=== PATIENT | male | born 1950 | race Caucasian/White ===

== ENCOUNTER 2023-11-28 16:25 | Inpatient (IN) ==
--- NOTE | 2023-11-28 16:48 | Emergency Department Note ---
Impression & Plan Pancreatic cancer, Enteritis, Fever, Hypomagnesemia, Hyponatremia, Hypophosphatemia ED Provider Note NAME: SAMIR CAMEJO AGE: 72 SEX: M : 1950 ARRIVES VIA: Walk-In INFORMANT: Patient ED PROVIDER(S): Jc Luis MD CHIEF COMPLAINT: Fever, abdominal pain, loose stool. PLAN: Disposition: Admit MEDICAL DECISION MAKING: The patient is a pleasant 72-year-old gentleman with a past medical history of pancreatic cancer status post Whipple procedure, currently undergoing chemotherapy with last treatment approximately 10 days ago who presents to the emergency department via walk-in, accompanied by family for fever of 100.4 at home in setting of having intermittent abdominal discomfort and gas pain and frequent loose stool over the past cough. She is afebrile here for 5 days. They deny any cough, congestion. No he reports feeling nauseated but denies vomiting. On evaluation the patient is fatigued appearing but no acute distress, afebrile with heart rate in the 120s and vital signs otherwise stable. WBC within normal limits with no neutrophilia though mild left shift. Platelets within normal limits. H/H similar to prior. Chemistry without metabolic acidosis. Magnesium 1.6 with repletion provided. LFTs unremarkable. HS troponin 11.1, within normal limits. Lipase normal. Procalcitonin is not elevated. UA with 1+ ketones consistent with patient's clinical dry appearance. Otherwise no evidence of infection. Respiratory BioFire was negative. Stool studies ordered however sample yet to be obtained. Patient did have a watery stool but was not able to be collected. CT of the ab pelvis was performed and demonstrates evidence of enteritis. Additional postoperative changes from the patient's Whipple is described. Upon re-evaluation patient did report feeling improved following IV fluid hydration with 2 L normal saline, IV APAP, famotidine, Phenergan, Zofran as well as Bentyl. Empiric antibiotic treatment with cefepime was given while awaiting results due to being on chemotherapy with fever. Findings reviewed with the patient and family and given the patient's poor oral intake in the setting of enteritis he expresses concerns for being dehydrated. Additionally, given the patient's fevers also agrees to proceed with admission at this time. Case was discussed with Dr. Brown, [facility] hospitalist, who will evaluate the patient for admission. Further management per admitting team. Triage Nursing notes reviewed and agree them. Prior/external medical records reviewed Vital Signs: reviewed Differential diagnosis: Viral syndrome, otitis, pharyngitis, pneumonia, influenza, meningitis, urinary tract infection, sepsis, bacteremia, as well as other pathologies. ER treatment provided: See below. Diagnostics interpreted by me: ECG: Sinus tachycardia, 114 bpm, no ectopy, no overt ST elevation or depression, QTc 443, cures 76. Cardiac Monitoring: An order for continuous cardiac monitoring was placed and demonstrated Sinus tachycardia, 114 bpm, no ectopy. Laboratory studies: See below Imaging studies: See below Consultation(s): Case was discussed with Dr. Brown, [facility] hospitalist, who will evaluate the patient for admission. HPI: The patient is a pleasant 72-year-old gentleman with a past medical history of pancreatic cancer status post Whipple procedure, currently undergoing chemotherapy with last treatment approximately 10 days ago who presents to the emergency department via walk-in, accompanied by family for fever of 100.4 at home in setting of having intermittent abdominal discomfort and gas pain and frequent loose stool over the past cough. She is afebrile here for 5 days. They deny any cough, congestion. No he reports feeling nauseated but denies vomiting. ROS: See above HPI for pertinent positives & negatives. A total of 10 systems reviewed and were otherwise negative. VITALS:See Below PHYSICAL EXAMINATION: GENERAL: Awake, alert, fatigued appearing, in no distress HENT: Normocephalic, atraumatic. Oropharynx with dry mucous membranes and otherwise unremarkable. EYES: Normal conjunctiva. Sclera non-icteric. NECK: Supple. No nuchal rigidity. FROM. No JVD. RESPIRATORY: Clear to auscultation. CARDIAC: Tachycardic rate, normal rhythm. Extremities warm and well perfused. Pulses equal. ABDOMEN: Soft, non-distended. No tenderness to palpation. No rebound or guarding. No masses. MUSCULOSKELETAL: Chest examination reveals no tenderness. The back is symmetrical on inspection without obvious abnormality. There is no CVA tenderness to palpation. No joint edema. LOWER EXTREMITIES: Calves are equal size bilaterally and non-tender. No edema. No discoloration. NEURO: Normal sensorium. No sensory or motor deficits noted. SKIN: No rash or jaundice noted. Jc Luis MD Past Med/Surg History Problem List (Updated 11/29/23 @ 04:13 by Jc Luis MD) Fever (Acute) Hypophosphatemia (Acute) Hypomagnesemia (Acute) Hyponatremia (Acute) Left lower quadrant abdominal pain Enteritis (Acute) Encounter for pre-operative examination Pancreatic cancer (Acute) S/P appendectomy Esophageal foreign body Medical History Sensorineural hearing loss Hyperlipidemia Diaphragmatic hernia Type 2 diabetes mellitus HTN (hypertension) Pancreatic cancer (09/2023) [place] records also list cancer of liver, gallbladder and bile duct Surgical History Port-A-Cath in place Insertion Access Port with Fluoroscopy(Left) - Casper Tavera DO History of esophagogastroduodenoscopy (EGD) Hx of tonsillectomy Hx of hernia repair S/P appendectomy History of Whipple procedure (10/2023) [facility] Social History Smoking Status: Never smoker Second Hand Exposure: No; Do You Dip or Chew Tobacco: No; Hx Alcohol Use: No Hx Substance Use: No Preferred Language: [place] Communication Ability: Effective Visual Impairment: No Limitations Glove Printer Required: No Beliefs That Will Affect Care: None marital status: Current Living Situation: Spouse Other Information That Helps Us Care for You: No Feels Safe at Home: Yes Safety Concerns: Feels Safe At This Time Assistive Devices: Glasses and Hearing Aid - Bilateral Allergies Allergies Allergy/AdvReac Type Severity Reaction Status Date / Time No Known Allergies Allergy Unknown ` Verified 11/28/23 16:50 Home Meds Home Medications Medication Instructions Recorded Confirmed cholecalciferol (vitamin D3) 50 50 mcg PO DAILY 07/30/22 11/28/23 mcg (2,000 unit) capsule (Vitamin D3) multivitamin 1 tab PO DAILY 07/30/22 11/28/23 lisinopril 10 mg tablet 10 mg PO QAM 11/06/23 11/28/23 omeprazole 40 mg capsule,delayed 40 mg PO QAM 11/06/23 11/28/23 release prochlorperazine maleate 10 mg 10 mg PO Q6 PRN Nausea 11/28/23 11/28/23 tablet Results & Data (ED) Vital Signs Vital Signs - 24 hr 11/28/23 16:30 11/28/23 16:42 11/28/23 16:43 Temperature 36.7 C Temperature Source Oral Pulse Rate 128 H 116 H 115 H Pulse Rate [Right Finger] Pulse Rate from SpO2 Sensor 116 H Pulse Rhythm [Right Finger] Respiratory Rate 20 14 Respiratory Effort / Characteristics Non-Labored Spontaneous Respiratory Depth Normal Respiratory Pattern Blood Pressure 153/90 H Blood Pressure [Right Arm] Blood Pressure Mean 111 Blood Pressure Mean [Right Arm] Blood Pressure Position [Right Arm] Pulse Oximetry 96 96 Oxygen Delivery Method Room Air Sepsis Recent Fever Within 48 Hours No Sepsis New/Unexplained Change in Mental Status No Sepsis Action Taken by Nursing No Action Required 11/28/23 16:45 11/28/23 17:00 11/28/23 17:03 Temperature Temperature Source Pulse Rate 112 H 109 H Pulse Rate [Right Finger] 108 H Pulse Rate from SpO2 Sensor 112 H 110 H Pulse Rhythm [Right Finger] Regular Respiratory Rate 16 17 20 Respiratory Effort / Characteristics Respiratory Depth Respiratory Pattern Blood Pressure Blood Pressure [Right Arm] 160/95 H Blood Pressure Mean Blood Pressure Mean [Right Arm] 116 Blood Pressure Position [Right Arm] Pulse Oximetry 95 97 96 Oxygen Delivery Method Room Air Sepsis Recent Fever Within 48 Hours Sepsis New/Unexplained Change in Mental Status Sepsis Action Taken by Nursing 11/28/23 17:03 11/28/23 17:15 11/28/23 17:24 Temperature Temperature Source Pulse Rate 109 H 113 H Pulse Rate [Right Finger] Pulse Rate from SpO2 Sensor 113 H Pulse Rhythm [Right Finger] Respiratory Rate 14 16 Respiratory Effort / Characteristics Respiratory Depth Respiratory Pattern Blood Pressure Blood Pressure [Right Arm] Blood Pressure Mean Blood Pressure Mean [Right Arm] Blood Pressure Position [Right Arm] Pulse Oximetry 95 97 Oxygen Delivery Method Room Air Sepsis Recent Fever Within 48 Hours Sepsis New/Unexplained Change in Mental Status Sepsis Action Taken by Nursing 11/28/23 17:30 11/28/23 17:30 11/28/23 17:33 Temperature Temperature Source Pulse Rate 108 H Pulse Rate [Right Finger] Pulse Rate from SpO2 Sensor 108 H Pulse Rhythm [Right Finger] Respiratory Rate 13 Respiratory Effort / Characteristics Respiratory Depth Respiratory Pattern Blood Pressure 156/82 H 156/82 H Blood Pressure [Right Arm] Blood Pressure Mean 100 100 Blood Pressure Mean [Right Arm] Blood Pressure Position [Right Arm] Pulse Oximetry 97 Oxygen Delivery Method Sepsis Recent Fever Within 48 Hours Sepsis New/Unexplained Change in Mental Status Sepsis Action Taken by Nursing 11/28/23 17:36 11/28/23 17:45 11/28/23 17:48 Temperature Temperature Source Pulse Rate 102 H 102 H 102 H Pulse Rate [Right Finger] Pulse Rate from SpO2 Sensor 103 H 100 H Pulse Rhythm [Right Finger] Respiratory Rate 12 24 Respiratory Effort / Characteristics Respiratory Depth Respiratory Pattern Blood Pressure 165/82 H Blood Pressure [Right Arm] Blood Pressure Mean 105 Blood Pressure Mean [Right Arm] Blood Pressure Position [Right Arm] Pulse Oximetry 96 96 Oxygen Delivery Method Sepsis Recent Fever Within 48 Hours Sepsis New/Unexplained Change in Mental Status Sepsis Action Taken by Nursing 11/28/23 17:54 11/28/23 18:00 11/28/23 18:03 Temperature Temperature Source Pulse Rate 103 H 103 H 101 H Pulse Rate [Right Finger] Pulse Rate from SpO2 Sensor 104 H 103 H 102 H Pulse Rhythm [Right Finger] Respiratory Rate 26 H 15 Respiratory Effort / Characteristics Respiratory Depth Respiratory Pattern Blood Pressure 154/82 H Blood Pressure [Right Arm] Blood Pressure Mean 101 Blood Pressure Mean [Right Arm] Blood Pressure Position [Right Arm] Pulse Oximetry 97 97 Oxygen Delivery Method Sepsis Recent Fever Within 48 Hours Sepsis New/Unexplained Change in Mental Status Sepsis Action Taken by Nursing 11/28/23 18:15 11/28/23 18:15 11/28/23 18:15 Temperature Temperature Source Pulse Rate 101 H 101 H Pulse Rate [Right Finger] Pulse Rate from SpO2 Sensor 98 H Pulse Rhythm [Right Finger] Respiratory Rate 14 Respiratory Effort / Characteristics Respiratory Depth Respiratory Pattern Blood Pressure 142/76 H 142/76 H 142/76 H Blood Pressure [Right Arm] Blood Pressure Mean 103 98 103 Blood Pressure Mean [Right Arm] Blood Pressure Position [Right Arm] Pulse Oximetry 97 Oxygen Delivery Method Sepsis Recent Fever Within 48 Hours Sepsis New/Unexplained Change in Mental Status Sepsis Action Taken by Nursing 11/28/23 18:27 11/28/23 18:30 11/28/23 18:30 Temperature Temperature Source Pulse Rate 101 H Pulse Rate [Right Finger] Pulse Rate from SpO2 Sensor 100 H Pulse Rhythm [Right Finger] Respiratory Rate 11 L Respiratory Effort / Characteristics Respiratory Depth Respiratory Pattern Blood Pressure 135/83 135/83 Blood Pressure [Right Arm] Blood Pressure Mean 101 101 Blood Pressure Mean [Right Arm] Blood Pressure Position [Right Arm] Pulse Oximetry 97 Oxygen Delivery Method Sepsis Recent Fever Within 48 Hours Sepsis New/Unexplained Change in Mental Status Sepsis Action Taken by Nursing 11/28/23 18:33 11/28/23 19:00 11/28/23 19:21 Temperature 36.9 C Temperature Source Oral Pulse Rate 101 H 102 H Pulse Rate [Right Finger] 101 H Pulse Rate from SpO2 Sensor 101 H 101 H Pulse Rhythm [Right Finger] Respiratory Rate 15 16 18 Respiratory Effort / Characteristics Non-Labored Spontaneous Respiratory Depth Normal Respiratory Pattern Regular Blood Pressure 125/83 Blood Pressure [Right Arm] 144/89 H Blood Pressure Mean 97 Blood Pressure Mean [Right Arm] 107 Blood Pressure Position [Right Arm] Lying Pulse Oximetry 96 97 95 Oxygen Delivery Method Room Air Room Air Sepsis Recent Fever Within 48 Hours Sepsis New/Unexplained Change in Mental Status Sepsis Action Taken by Nursing 11/28/23 19:30 11/28/23 19:48 11/28/23 20:09 Temperature Temperature Source Pulse Rate 90 94 H 94 H Pulse Rate [Right Finger] Pulse Rate from SpO2 Sensor 90 92 H 96 H Pulse Rhythm [Right Finger] Respiratory Rate 16 14 16 Respiratory Effort / Characteristics Respiratory Depth Respiratory Pattern Blood Pressure 133/79 126/67 130/73 Blood Pressure [Right Arm] Blood Pressure Mean 97 86 92 Blood Pressure Mean [Right Arm] Blood Pressure Position [Right Arm] Pulse Oximetry 95 97 96 Oxygen Delivery Method Room Air Room Air Room Air Sepsis Recent Fever Within 48 Hours Sepsis New/Unexplained Change in Mental Status Sepsis Action Taken by Nursing 11/28/23 20:41 Temperature Temperature Source Pulse Rate 98 H Pulse Rate [Right Finger] Pulse Rate from SpO2 Sensor Pulse Rhythm [Right Finger] Respiratory Rate Respiratory Effort / Characteristics Respiratory Depth Respiratory Pattern Blood Pressure Blood Pressure [Right Arm] Blood Pressure Mean Blood Pressure Mean [Right Arm] Blood Pressure Position [Right Arm] Pulse Oximetry Oxygen Delivery Method Sepsis Recent Fever Within 48 Hours Sepsis New/Unexplained Change in Mental Status Sepsis Action Taken by Nursing Laboratory Data Attestation: I reviewed the patient's lab results. 11/28/23 16:57 11/28/23 16:57 Lab Results 11/28/23 11/28/23 Range/Units 16:57 19:22 WBC 8.65 (4.8-10.8) K/ul RBC 4.12 L (4.70-6.10) M/uL Hgb 11.8 L (14.0-18.0) g/dl Hct 35.9 L (42.0-52.0) % MCV 87.1 (80.0-100.0) fL MCH 28.6 (25.0-34.0) pg MCHC 32.9 (32.0-36.0) g/dL RDW Std Deviation 49.0 H (36.4-46.3) fL RDW Coeff of Bertrand 15.4 H (11.5-14.5) % Plt Count 192 (130-400) K/uL MPV 10.1 (9.4-12.4) fL Immature Gran % (Auto) 5.8 % Neut % (Auto) 68.9 % Lymph % (Auto) 5.9 % [place] % (Auto) 18.4 % Eos % (Auto) 0.2 % Baso % (Auto) 0.8 % Neut # (Auto) 5.96 (1.40-6.50) K/uL Lymph # (Auto) 0.51 L (1.20-3.40) K/uL [place] # (Auto) 1.59 H (0.11-0.59) K/uL Eos # (Auto) 0.02 (0.00-0.50) K/uL Baso # (Auto) 0.07 (0.00-0.20) K/uL Immature Gran # (Auto) 0.50 H (0.01-0.20) K/uL Absolute Nucleated RBC 0.02 (0.00-0.12) K/uL Nucleated RBC % (auto) 0.2 % Toxic Granulation 2+ Dohle Bodies 2+ Sodium 130 L (136-145) mmol/L Potassium 3.8 (3.5-5.1) mmol/L Chloride 98 (98-107) mmol/L Carbon Dioxide 22 (21-32) mmol/L Anion Gap 10 (3-11) BUN 16 (6-23) mg/dl Creatinine 0.90 (0.6-1.4) mg/dl Est Cr Clr Drug Dosing 80.5 ml/min Est GFR ( Amer) 98.5 ml/min Est GFR (Non-Af Amer) 85.0 ml/min BUN/Creatinine Ratio 17.8 (10-20) Glucose 189 H (70-99(Fasting)) mg/dl Lactate 1.8 (0.4-2.0) mmol/L Calcium 8.8 (8.6-10.3) mg/dl Phosphorus 2.3 L (2.5-4.9) mg/dl Magnesium 1.6 L (1.7-2.4) mg/dl Total Bilirubin 0.5 (0.2-1.0) mg/dl Direct Bilirubin 0.2 (0-0.2) mg/dl AST 20 (13-39) U/L ALT 18 (7-52) U/L Alkaline Phosphatase 100 (34-104) U/L Troponin I High Sens 11.1 (0-20) pg/ml Total Protein 6.6 (6.0-8.3) gm/dl Albumin 3.6 (3.4-5.0) gm/dl Lipase 14 (11-82) U/L Procalcitonin 0.23 (0-0.5) ng/ml Urine Color Dark Yellow Urine Appearance Clear (Clear) Urine pH 5.5 (4.5-7.5) Ur Specific [place] 1.036 H (1.000-1.030) Urine Protein 2+ H (Negative) Urine Glucose (UA) Trace H (Negative) Urine Ketones 1+ H (Negative) Urine Blood Negative (Negative) Urine Nitrite Negative (Negative) Urine Bilirubin Negative (Negative) Urine Urobilinogen Negative (Negative) Ur Leukocyte Esterase Negative (Negative) Urine WBC (Auto) 0-5 (0-5) /hpf Urine RBC (Auto) 3-5 H (0-2) /hpf U Hyaline Cast (Auto) 0-2 (0-2) /lpf U Epithel Cells (Auto) 0-2 (0-2) /hpf Urine Bacteria (Auto) None Seen (None Seen) Administered Medications Lactated Ringer's (Lr) 1,000 mls @ 125 mls/hr IV .Q8H DEANDRE Stop: 11/29/23 07:29 Last Admin: 11/29/23 00:17 Dose: 125 mls/hr Documented By: KB Insulin Aspart (Insulin Aspart Per Unit Charge) 0 units SC Q6 DEANDRE Stop: 12/29/23 00:00 Last Admin: 11/29/23 00:22 Dose: Not Given Documented By: KB Discontinued Medications Dicyclomine HCl (Dicyclomine Hcl 10 Mg/Ml 2 Ml Amp/Vial) 20 mg IM NOW ONE Stop: 11/28/23 19:49 Last Admin: 11/28/23 20:22 Dose: 20 mg Documented By: Sodium Chloride (Nss) 1,000 mls @ 999 mls/hr IV .Q1H1M DEANDRE Stop: 11/28/23 18:45 Last Infusion: 11/28/23 18:43 Dose: Infused Documented By: MARK ANTHONY Admin: 11/28/23 17:22 Dose: 999 mls/hr Documented By: Infusion: 11/28/23 17:22 Dose: Infused Documented By: Admin: 11/28/23 17:20 Dose: 999 mls/hr Documented By: ALS Acetaminophen (Ofirmev) 1,000 mg in 100 mls @ 400 mls/hr IV NOW STA Stop: 11/28/23 17:43 Last Infusion: 11/28/23 18:43 Dose: Infused Documented By: MARK ANTHONY Admin: 11/28/23 17:57 Dose: 400 mls/hr Documented By: MARK ANTHONY Famotidine (Pepcid 20mg Iv Push) 20 mg in 5 mls @ 2.5 mls/min IV NOW STA Stop: 11/28/23 17:30 Last Admin: 11/28/23 17:58 Dose: 2.5 mls/min Documented By: MARK ANTHONY Cefepime HCl (Maxipime) 2,000 mg in 20 mls @ 5 mls/min IV NOW STA; Protocol Stop: 11/28/23 17:43 Last Admin: 11/28/23 17:58 Dose: 5 mls/min Documented By: MARK ANTHONY Magnesium Sulfate/Dextrose (Magnesium Sulfate / D5w) 1 gm in 100 mls @ 100 mls/hr IV NOW STA Stop: 11/28/23 19:58 Last Infusion: 11/28/23 22:30 Dose: Infused Documented By: Admin: 11/28/23 19:37 Dose: 100 mls/hr Documented By: KB Promethazine HCl (Phenergan) 12.5 mg in 50.5 mls @ 202 mls/hr IV NOW STA Stop: 11/28/23 20:03 Last Infusion: 11/28/23 20:41 Dose: Infused Documented By: Admin: 11/28/23 20:24 Dose: 202 mls/hr Documented By: Magnesium Sulfate/Dextrose (Magnesium Sulfate / D5w) 1 gm in 100 mls @ 50 mls/hr IV Q2H DEANDRE Stop: 11/29/23 03:29 Last Infusion: 11/29/23 03:58 Dose: Infused Documented By: Admin: 11/29/23 02:24 Dose: 100 mls/hr Documented By: Infusion: 11/29/23 02:23 Dose: Infused Documented By: Admin: 11/29/23 00:19 Dose: 50 mls/hr Documented By: KB Ioversol (Optiray 320 100ml) 92 ml IV ONCE ONE Stop: 11/28/23 19:13 Last Admin: 11/28/23 19:13 Dose: 92 ml Documented By: BOLA Ondansetron HCl (Ondansetron Inj 2 Mg/Ml 2 Ml Vial) 4 mg IV NOW STA Stop: 11/28/23 17:30 Last Admin: 11/28/23 17:57 Dose: 4 mg Documented By: MARK ANTHONY Simethicone (Simethicone 40 Mg/0.6 Ml 30ml) 40 mg PO NOW ONE Stop: 11/28/23 22:37 Last Admin: 11/28/23 23:09 Dose: Not Given Documented By: KB Simethicone (Simethicone 80 Mg Chew) 80 mg PO NOW STA Stop: 11/28/23 23:09 Last Admin: 11/28/23 23:52 Dose: Not Given Documented By: KB Imaging Data Radiologist's Impression: Chest X-Ray 11/28/23 16:43 XR chest 1V portable HISTORY: 72 years-old Male Sepsis COMPARISON: 11/13/2023 TECHNIQUE: Chest FINDINGS: Lateral hernia. Cardiac size is normal. Unchanged positioning of the left subclavian [id number] catheter. Lungs appear clear. No pneumothorax or pleural effusion. Bones appear intact. IMPRESSION: 1. No acute processes of the chest. 2. Hiatal hernia. ACT 112: Negative or not required by law. The above report was generated using voice recognition software. It may contain grammatical, syntax or spelling errors. Electronically signed by: Erick Garcia M.D. 11/28/2023 5:50 PM Abdomen/Pelvis CT 11/28/23 18:[address] WITH IV CONTRAST CT DOSE: 1072.14 mGy.cm HISTORY: Acute generalized abdominal pain with fever and nausea . Prior Whipple procedure. fever, nausea, diarrhea, on chemo TECHNIQUE: Multiaxial CT images of the abdomen and pelvis were performed following the IV administration of 92 cc of Optiray, A dose lowering technique was utilized adhering to the principles of ALARA. COMPARISON STUDY: 11/09/2023 FINDINGS: The lung bases are clear. Redemonstration of a small fat-containing right-sided Bochdalek hernia. No pneumoperitoneum. No pneumatosis. No suspicious lytic or blastic osseous lesions. There is a moderate hiatus hernia, unchanged. Multiple scattered hypodense lesions again noted throughout the liver measuring up to 2.4 cm. These favor cysts. No suspicious hepatic lesions identified. The spleen is unremarkable. Mild thickening of the left adrenal gland, unchanged. Normal right adrenal gland. There are few small bilateral renal hypodense lesions which also favors cysts. No hydronephrosis. 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 Focal moderate to severe narrowing at the portosplenic confluence which is likely due to the postoperative change. Otherwise, the main portal vein is patent. Mild calcified plaque within the normal caliber abdominal aorta. No retroperitoneal or pelvic lymphadenopathy. Redemonstration of postoperative changes compatible with prior Whipple procedure. Soft tissue thickening at the gastroenteric anastomosis with adjacent inflammatory stranding redemonstrated. aThere is non mass-like fat stranding at the juany hepatis as well as areas of fat necrosis inferior to the pancreas. This favors postoperative change/scarring. Underlying metastatic disease would be difficult to exclude. The pancreatic tail enhances normally. The residual main pancreatic duct is normal in caliber. Mild thickening within the residual extrahepatic bile duct also favors postoperative change. The previously noted 13 mm omental soft tissue nodule inferior to the distal stomach is unchanged on image 100 series 3. The urinary bladder is unremarkable. The prostate gland is mildly enlarged. Colonic diverticulosis. No evidence for acute diverticulitis. No dilated loops of bowel to suggest an obstruction. Several loops of small bowel demonstrates circumferential wall thickening, notably within the ileum on image 241 series 3. The appendix is surgically absent. IMPRESSION: 1. Postoperative changes of prior Whipple procedure. Postoperative changes within the abdomen are redemonstrated. Inflammatory stranding surrounds the gastric enteric anastomosis which may be postsurgical, infectious or inflammatory. 2. Unchanged 13 mm omental soft tissue nodule adjacent to the distal stomach. 3. Several loops of ileum demonstrates circumferential wall thickening suspicious for a nonspecific enteritis. 4. Moderate-sized hiatal hernia. 5. Colonic diverticulosis. ACT 112: Negative or not required by law. The above report was generated using voice recognition software. It may contain grammatical, syntax or spelling errors. Electronically signed by: Erick Garcia M.D. 11/28/2023 7:51 PM Discharge Plan Visit Data Chief Complaint: Fever Stated Complaint: WEAK, FEVER, NO APPETITE ED Provider: Jc Luis Discharge Problem: Pancreatic cancer, Enteritis, Fever, Hypomagnesemia, Hyponatremia, Hypophosphatemia Discharge Instructions Interventions: ED Discharge Assessment Last Done: 11/28/23 23:30 Discharge Problem: Pancreatic cancer Qualifiers: Pancreatic malignancy location: unspecified Qualified Code(s): C25.9 - Malignant neoplasm of pancreas, unspecified Fever Qualifiers: Fever type: unspecified Qualified Code(s): R50.9 - Fever, unspecified
[2023-11-28] MEDS: SODIUM CHLORIDE 0.9% 1,000 ML IV SCH (17:20)
[2023-11-28 17:32] LABS: Albumin Level 3.6 gm/dl (3.4-5.0); BUN Creatinine Ratio 17.8 (10-20); Bilirubin Direct 0.2 mg/dl (0-0.2); Bilirubin,Total 0.5 mg/dl (0.2-1.0); Calcium 8.8 mg/dl (8.6-10.3); Creatinine Clr Calc Pharmacy 80.5 ml/min; Est GFR (African American) 98.5 ml/min; Magnesium 1.6 mg/dl (1.7-2.4); Phosphorus 2.3 mg/dl (2.5-4.9); Potassium 3.8 mmol/L (3.5-5.1); Total Protein 6.6 gm/dl (6.0-8.3)
[2023-11-28 17:37] LABS: Troponin I High Sensitivity 11.1 pg/ml (0-20)
[2023-11-28 17:43] LABS: Basophils # (auto) 0.07 K/uL (0.00-0.20); Basophils % (auto) 0.8 %; Dohle Bodies 2+; Eosinophils # (auto) 0.02 K/uL (0.00-0.50); Eosinophils % (auto) 0.2 %; Hematocrit (blood only) 35.9 % (42.0-52.0); Hemoglobin 11.8 g/dl (14.0-18.0); Immature Granulocytes % (auto) 5.8 %; Lymphocytes # (auto) 0.51 K/uL (1.20-3.40); Lymphocytes % (auto) 5.9 %; Mean Corpuscular Hemoglobin 28.6 pg (25.0-34.0); Mean Corpuscular Hgb Conc 32.9 g/dL (32.0-36.0); Mean Corpuscular Volume 87.1 fL (80.0-100.0); Mean Platelet Volume 10.1 fL (9.4-12.4); Monocytes # (auto) 1.59 K/uL (0.11-0.59); Monocytes % (auto) 18.4 %; Neutrophils # (auto) 5.96 K/uL (1.40-6.50); Neutrophils % (auto) 68.9 %; Nucleated RBC # (auto) 0.02 K/uL (0.00-0.12); Nucleated RBC % (auto) 0.2 %; Platelet Count 192 K/uL (130-400); RDW Coefficient of Variation 15.4 % (11.5-14.5); Red Blood Count 4.12 M/uL (4.70-6.10); Toxic Granulation 2+; White Blood Count 8.65 K/ul (4.8-10.8)
--- NOTE | 2023-11-28 17:51 | XRay Report ---
XR chest 1V portable HISTORY: 72 years-old Male Sepsis COMPARISON: 11/13/2023 TECHNIQUE: Chest FINDINGS: Lateral hernia. Cardiac size is normal. Unchanged positioning of the left subclavian [id number] ca theter. Lungs appear clear. No pneumothorax or pleural effusion. Bones appear intact. IMPRESSION: 1. No acute processes of the chest. 2. Hiatal hernia. ACT 112: Negative or not required by law. The above report was generated using voice recognition software. It may contain grammatical, syntax o r spelling errors. Electronically signed by: Erick Garcia M.D. 11/28/2023 5:50 PM
[2023-11-28] MEDS: ONDANSETRON INJ 2 MG/ML 2 ML VIAL IV STA (17:57)
[2023-11-28] MEDS: ACETAMINOPHEN 1,000 MG/100 ML VIAL IV STA (17:57)
[2023-11-28] MEDS: CEFEPIME 2,000 MG/20 ML VIAL IV STA (17:58)
[2023-11-28] MEDS: FAMOTIDINE 20MG IV PUSH 20 MG/5 ML SYR IV STA (17:58)
[2023-11-28 18:24] LABS: Adenovirus PCR Not Detected (NotDetected); Bordetella parapertussis PCR Not Detected (NotDetected); Bordetella pertussis PCR Not Detected (NotDetected); Chlamydia pneumoniae PCR Not Detected (NotDetected); Coronavirus 229E PCR Not Detected (NotDetected); Coronavirus CoV-2 (COVID19)PCR Not Detected (NotDetected); Coronavirus HKU1 PCR Not Detected (NotDetected); Coronavirus NL63 PCR Not Detected (NotDetected); Coronavirus OC43PCR Not Detected (NotDetected); Human Metapneumovirus PCR Not Detected (NotDetected); Influenza A PCR Not Detected (NotDetected); Influenza B PCR Not Detected (NotDetected); Mycoplasma pneumoniae PCR Not Detected (NotDetected); Parainfluenza Virus 1 PCR Not Detected (NotDetected); Parainfluenza Virus 2 PCR Not Detected (NotDetected); Parainfluenza Virus 3 PCR Not Detected (NotDetected); Parainfluenza Virus 4 PCR Not Detected (NotDetected); Respiratory Syncytial VirusPCR Not Detected (NotDetected); Rhinovirus/Enterovirus PCR Not Detected (NotDetected)
[2023-11-28] MEDS: OPTIRAY 320 100ml IV ONE (19:13)
[2023-11-28] MEDS: MAGNESIUM SULFATE / D5W 1 GM/100 ML BAG IV STA (19:37)
[2023-11-28 19:43] LABS: Appearance Urine Clear (Clear); Bacteria Urine Automated None Seen (None Seen); Bilirubin Urine Negative (Negative); Blood Urine Negative (Negative); Cast Urine Automated 0-2 /lpf (0-2); Color Urine Dark Yellow; Epithelial Cell Urine Auto 0-2 /hpf (0-2); Glucose Urine UA Trace (Negative); Ketones Urine 1+ (Negative); Leukocyte Esterase Urine Negative (Negative); Nitrite Urine Negative (Negative); Protein Urine 2+ (Negative); Specific Gravity Urine 1.036 (1.000-1.030); Urobilinogen Urine Negative (Negative); WBC Urine Automated 0-5 /hpf (0-5); pH Urine 5.5 (4.5-7.5)
--- NOTE | 2023-11-28 19:53 | CT Scan Report ---
ABDOMEN AND PELVIS CT WITH IV CONTRAST CT DOSE: 1072.14 mGy.cm HISTORY: Acute generalized abdominal pain with fever and nausea . Prior Whipple procedure. fever, latha sea, diarrhea, on chemo TECHNIQUE: Multiaxial CT images of the abdomen and pelvis were performed following the IV administrat ion of 92 cc of Optiray, A dose lowering technique was utilized adhering to the principles of ALARA. COMPARISON STUDY: 11/09/2023 FINDINGS: The lung bases are clear. Redemonstration of a small fat-containing right-sided [place] h ernia. No pneumoperitoneum. No pneumatosis. No suspicious lytic or blastic osseous lesions. There is a moderate hiatus hernia, unchanged. Multiple scattered hypodense lesions again noted throug hout the liver measuring up to 2.4 cm. These favor cysts. No suspicious hepatic lesions identified. T he spleen is unremarkable. Mild thickening of the left adrenal gland, unchanged. Normal right adrenal gland. There are few small bilateral renal hypodense lesions which also favors cysts. No hydronephro sis. 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 Focal moderate to severe n arrowing at the portosplenic confluence which is likely due to the postoperative change. Otherwise, t he main portal vein is patent. Mild calcified plaque within the normal caliber abdominal aorta. No re troperitoneal or pelvic lymphadenopathy. Redemonstration of postoperative changes compatible with prior Whipple procedure. Soft tissue thicken ing at the gastroenteric anastomosis with adjacent inflammatory stranding redemonstrated. aThere is n on mass-like fat stranding at the juany hepatis as well as areas of fat necrosis inferior to the panc reas. This favors postoperative change/scarring. Underlying metastatic disease would be difficult to exclude. The pancreatic tail enhances normally. The residual main pancreatic duct is normal in calibe r. Mild thickening within the residual extrahepatic bile duct also favors postoperative change. The p reviously noted 13 mm omental soft tissue nodule inferior to the distal stomach is unchanged on image 100 series 3. The urinary bladder is unremarkable. The prostate gland is mildly enlarged. Colonic di verticulosis. No evidence for acute diverticulitis. No dilated loops of bowel to suggest an obstructi on. Several loops of small bowel demonstrates circumferential wall thickening, notably within the ile um on image 241 series 3. The appendix is surgically absent. IMPRESSION: 1. Postoperative changes of prior Whipple procedure. Postoperative changes within the abdomen are red emonstrated. Inflammatory stranding surrounds the gastric enteric anastomosis which may be postsurgic al, infectious or inflammatory. 2. Unchanged 13 mm omental soft tissue nodule adjacent to the distal stomach. 3. Several loops of ileum demonstrates circumferential wall thickening suspicious for a nonspecific e nteritis. 4. Moderate-sized hiatal hernia. 5. Colonic diverticulosis. ACT 112: Negative or not required by law. The above report was generated using voice recognition software. It may contain grammatical, syntax o r spelling errors. Electronically signed by: Erick Garcia M.D. 11/28/2023 7:51 PM
[2023-11-28] MEDS: DICYCLOMINE HCL 10 MG/ML 2 ML AMP/VIAL IM ONE (20:22)
[2023-11-28] MEDS: PROMETHAZINE 12.5 MG/50.5 ML BAG IV STA (20:24)
--- NOTE | 2023-11-28 22:04 | History & Physical Report ---
Date of Service November 28, 2023 Assessment & Plan (1) Enteritis: Plan: 72 M with stage II pancreatic cancer (s/p Whipple on 10/05, chemotherapy), HTN, HLD, DM2, who presents with abdominal pain and diarrhea x 3 days with evidence of nonspecific enteritis on CT A/P. Now admitted for further evaluation, supportive management. LLQ Abdominal Pain/Ileal Enteritis -Circumferential ileal wall thickening seen on CT A/P "suspicious for nonspec ific enteritis." -Clinically afebrile, otherwise hemodynamically stable. -S/p IV cefepime 2 g, supportive measures (famotidine, Bentyl, Zofran, Phenergan) in the ED. In the absence of red flag symptoms, and patient's clinical presentation will discontinue antibiotics, managed with bowel rest and supportive measures at this time. -There is possibility that the enteritis is in fact secondary to pancreatic insufficiency, given patient's history of pancreatic cancer. However, will manage as infectious/inflammatory for the time being. * Admit to MedSurg telemetry * N.p.o. for bowel rest (except for p.o. meds, sips and chips) * Resuscitative maintenance fluids Lactated Ringer@125 mL/h x 1 bag * Stool culture/stool bio fire PCR and C. difficile stool PCR ordered, uncollected * IV Protonix 40 mg daily * IV Zofran every 4 hours as needed * Consider Creon if abdominal pain, enteritis refractory to initial supportive measures * Trend daily CBC, BMP Hyponatremia -Na of 130 on admission. Previous range 136-140. -Suspect 2/2 poor p.o. intake, diarrhea. * Maintenance IVF as above * Trend daily BMP Hypomagnesemia/Hypophosphatemia -Mg 1.6, Phos 2.3 on initial ER workup. S/p IV Mg repletion x 1 g in the ER. -Likely 2/2 poor p.o. intake. * Additional IV Mg repletion x 2 g * Recheck Mg, Phos in a.m. replete as needed Type 2 Diabetes Mellitus -Reported by patient. Otherwise unconfirmed. Not on any antihyperglycemic pharmacotherapy at home. -Glucose-189 on initial ER workup. * N.p.o. as above. * SSI insulin per protocol (range = 100-140, CF = 40, CR = 20) * A.m. Hgb A1c pending * Atorvastatin 40 mg daily Hypertension -Chronic. On lisinopril 10 mg daily at home. * Continue home lisinopril Pancreatic cancer (stage II) -Managed at [facility]. -S/p Whipple procedure on October 05. Currently on chemotherapy * Continue to monitor * September trial Code: Full code Dispo: Med-Surg telemetry FEN/GI: NPO. LR @maintenance rate DVT Prophylaxis: Lovenox 40 mg q24h PT/OT: No Consults: None Case Management: No (2) Left lower quadrant abdominal pain: (3) Hyponatremia: (4) Hypomagnesemia: (5) Hypophosphatemia: (6) Pancreatic cancer: (7) HTN (hypertension): (8) Type 2 diabetes mellitus: (9) Hyperlipidemia: History of Present Illness Primary Care Provider: [facility] Angus is a 72-year-old man with a recent medical history of pancreatic cancer (stage II, s/p Whipple procedure on 10/05 [facility]), HLD, HTN, who presented to the emergency room with a complaint of abdominal pain and diarrhea since . Specifically, he reports ~4 BMs daily since symptom onset (1 BM daily at baseline). ROS + nausea, gas, poor appetite, generalized weakness. He denies emesis, hematochezia, melena, recent antibiotic use, recent hospital visit, or pain with defecation. In the ER, vitals were stable, within normal limits. Labs were notable for Na- 130, Mg-1.6, Phos-2.3. WBC was normal-8.65, as were procalcitonin (0.23), lipase (14), high-sensitivity troponin (11.1), alk phos (100), and lactate (1.8). CT A/P report noted circumferential ileal wall thickening "suspicious for a nonspecific enteritis." He received a 2 L normal saline bolus, IV Tylenol 1 g, IV cefepime 2 g, IV dicyclomine, IV famotidine 20 mg, IV Phenergan 12.5 mg, IM Bentyl 20 mg, IV Zofran 4 mg, as well as IV Mg repletion x 1 g hospitalist service was then consulted for admission. On admission, he continues to report lingering LLQ abdominal pain. He also reports having a watery bowel movement since presenting to the ER. Otherwise, he has no acute complaints. Allergies Allergy/AdvReac Type Severity Reaction Status Date / Time No Known Allergies Allergy Unknown ` Verified 11/28/23 16:50 Home Medications Medication Instructions Recorded Confirmed Type cholecalciferol (vitamin D3) 50 50 mcg PO DAILY 07/30/22 11/28/23 History mcg (2,000 unit) capsule (Vitamin D3) multivitamin 1 tab PO DAILY 07/30/22 11/28/23 History lisinopril 10 mg tablet 10 mg PO QAM 11/06/23 11/28/23 History omeprazole 40 mg capsule,delayed 40 mg PO QAM 11/06/23 11/28/23 History release prochlorperazine maleate 10 mg 10 mg PO Q6 PRN Nausea 11/28/23 11/28/23 History tablet Past Med/Surg History Problem List (Updated 11/29/23 @ 04:13 by Jc Luis MD) Fever (Acute) Hypophosphatemia (Acute) Hypomagnesemia (Acute) Hyponatremia (Acute) Left lower quadrant abdominal pain Enteritis (Acute) Encounter for pre-operative examination Pancreatic cancer (Acute) S/P appendectomy Esophageal foreign body Medical History Sensorineural hearing loss Hyperlipidemia Diaphragmatic hernia Type 2 diabetes mellitus HTN (hypertension) Pancreatic cancer (09/2023) [place] records also list cancer of liver, gallbladder and bile duct Surgical History Port-A-Cath in place Insertion Access Port with Fluoroscopy(Left) - Casper Tavera DO History of esophagogastroduodenoscopy (EGD) Hx of tonsillectomy Hx of hernia repair S/P appendectomy History of Whipple procedure (10/2023) [facility] Social History Smoking Status: Never smoker Second Hand Exposure: No; Do You Dip or Chew Tobacco: No; Hx Alcohol Use: No Hx Substance Use: No Preferred Language: Czech Communication Ability: Effective Visual Impairment: No Limitations Kitchen Hand Required: No Beliefs That Will Affect Care: None marital status: Current Living Situation: Spouse Other Information That Helps Us Care for You: No Feels Safe at Home: Yes Safety Concerns: Feels Safe At This Time Assistive Devices: None Review of Systems Review of Systems: All systems reviewed & are unremarkable except as noted in HPI & below Physical Exam Physical Exam: General: No acute distress HEENT: PERRLA. Normal conjunctiva, anicteric sclera. Oropharynx dry. Respiratory: Normal respiratory effort, CTABL. Cardiovascular: RRR without murmurs, gallops, or rubs. No pedal edema. GI: Mild LLQ tenderness to palpation. Rest of exam normal. Neuro: Alert and oriented x3. Results & Data Results & Data Vital Signs (Past 12 Hours) Vital Signs Temp Pulse Pulse Resp BP BP Pulse Ox 11/28/23 20:41 98 H 11/28/23 20:09 94 H 16 130/73 96 11/28/23 19:48 94 H 14 126/67 97 11/28/23 19:30 90 16 133/79 95 11/28/23 19:21 36.9 C 101 H 18 144/89 H 95 11/28/23 19:00 102 H 16 125/83 97 11/28/23 18:33 101 H 15 96 11/28/23 18:30 135/83 11/28/23 18:30 135/83 11/28/23 18:27 101 H 11 L 97 11/28/23 18:15 142/76 H 11/28/23 18:15 101 H 14 142/76 H 97 11/28/23 18:15 101 H 142/76 H 11/28/23 18:03 101 H 15 97 11/28/23 18:00 103 H 154/82 H 11/28/23 17:54 103 H 26 H 97 11/28/23 17:48 102 H 24 96 11/28/23 17:45 102 H 165/82 H 11/28/23 17:36 102 H 12 96 11/28/23 17:33 108 H 13 97 11/28/23 17:30 156/82 H 11/28/23 17:30 156/82 H 11/28/23 17:24 113 H 16 97 11/28/23 17:15 109 H 14 11/28/23 17:03 95 11/28/23 17:03 108 H 20 160/95 H 96 11/28/23 17:00 109 H 17 97 11/28/23 16:45 112 H 16 95 11/28/23 16:43 115 H 11/28/23 16:42 116 H 14 96 11/28/23 16:30 36.7 C 128 H 20 153/90 H 96 O2 Del Method 11/28/23 20:41 11/28/23 20:09 Room Air 11/28/23 19:48 Room Air 11/28/23 19:30 Room Air 11/28/23 19:21 Room Air 11/28/23 19:00 Room Air 11/28/23 18:33 11/28/23 18:30 11/28/23 18:30 11/28/23 18:27 11/28/23 18:15 11/28/23 18:15 11/28/23 18:15 11/28/23 18:03 11/28/23 18:00 11/28/23 17:54 11/28/23 17:48 11/28/23 17:45 11/28/23 17:36 11/28/23 17:33 11/28/23 17:30 11/28/23 17:30 11/28/23 17:24 11/28/23 17:15 11/28/23 17:03 Room Air 11/28/23 17:03 Room Air 11/28/23 17:00 11/28/23 16:45 11/28/23 16:43 11/28/23 16:42 11/28/23 16:30 Room Air Supervising Physician Co-Signing Physician Notes Attending addendum: I have physically seen this patient, have supervised the medical residents activities, and agree with the H&P unless as otherwise noted. Assessment and Plan: Abdominal pain/nonspecific enteritis- From the ED received the following: Normal saline 1 L bolus, Tylenol 1 g IV, famotidine 20 mg IV, Zofran 4 mg IV, cefepime 2 g IV, mag sulfate 1 g IV, dicyclomine 20 mg IM and Phenergan 12.5 mg IV NPO except essential medications LR at 125 MLS per hour x 1 L Follow stool culture, stool BioFire and C. difficile stool PCR Pantoprazole 40 mg IV daily Zofran 4 mg IV every 4 hours as needed Electrolyte disturbances/hypomagnesemia/hyponatremia hypophosphatemia- Magnesium 1.6, sodium 130 and phosphorus 2.3 Replaced IV, and recheck laboratories in a.m. Diabetes mellitus- Glucose 189 on admission Placed on Accu-Cheks with NovoLog SSI Check hemoglobin A1c Pancreatic cancer stage III/status post Whipple procedure on 10/25- Presently on chemotherapy, directed at [facility] Did receive empiric cefepime 2 g IV from the ED Follow cultures, and determine if additional antibiotics need to be performed, particular follow-up stool studies before any further antibiotics Resident Activity Tracking Resident Involvement: Resident Care Provided Care Provided: Adult Hospital Medicine
[2023-11-28] MEDS: SIMETHICONE 40 MG/0.6 ML 30ML PO ONE (23:09)
[2023-11-28] MEDS ORDERED: DEXTROSE 50% 50 ML SYRINGE IV PRN (23:30)
[2023-11-28] MEDS ORDERED: ONDANSETRON INJ 2 MG/ML 2 ML VIAL IV PRN (23:30)
[2023-11-28] MEDS ORDERED: GLUCOSE 10 TAB/TUBE PO PRN (23:30)
[2023-11-28] MEDS ORDERED: CARBOHYDRATES FOR HYPOGLYCEMIA PO PRN (23:30)
[2023-11-28] MEDS ORDERED: GLUCAGON FOR INJ 1 MG VIAL SQ PRN (23:30)
[2023-11-28] MEDS ORDERED: GLUCOSE 40% GEL 15 GM TUBE PO PRN (23:30)
[2023-11-28] MEDS: SIMETHICONE 80 MG CHEW PO STA (23:52)
[2023-11-29] MEDS: LACTATED RINGER'S 1,000 ML IV SCH ×2 (00:17→13:52)
[2023-11-29] MEDS: MAGNESIUM SULFATE / D5W 1 GM/100 ML BAG IV SCH (00:19)
[2023-11-29] MEDS: INSULIN ASPART PER UNIT CHARGE SC SCH ×2 (00:22→17:37)
[2023-11-29 02:15] LABS: Adenovirus F 40/41 PCR Not Detected (NotDetected); Astrovirus PCR Not Detected (NotDetected); Campylobacter PCR Not Detected (NotDetected); Cryptosporidium PCR Not Detected (NotDetected); Cyclospora cayetanensis PCR Not Detected (NotDetected); Entamoeba histolytica PCR Not Detected (NotDetected); Enteroaggregative E.coli(EAEC) Not Detected (NotDetected); Enteropathogenic E.coli (EPEC) Not Detected (NotDetected); Enterotoxigenic E.coli (ETEC) Not Detected (NotDetected); Giardia lamblia PCR Not Detected (NotDetected); Norovirus GI/GII PCR Not Detected (NotDetected); Plesiomonas shigelloides PCR Not Detected (NotDetected); Rotavirus A PCR Not Detected (NotDetected); Salmonella PCR Not Detected (NotDetected); Sapovirus PCR Not Detected (NotDetected); Shiga-like Toxin E.coli (STEC) Not Detected (NotDetected); Shigella/Enteroinvasive E.coli Not Detected (NotDetected); Vibrio cholerae PCR Not Detected (NotDetected); Vibrio species PCR Not Detected (NotDetected); Yersinia enterocolitica PCR Not Detected (NotDetected)
[2023-11-29 05:26] LABS: Hematocrit (blood only) 31.7 % (42.0-52.0); Hemoglobin 10.4 g/dl (14.0-18.0); Mean Corpuscular Hemoglobin 28.8 pg (25.0-34.0); Mean Corpuscular Hgb Conc 32.8 g/dL (32.0-36.0); Mean Corpuscular Volume 87.8 fL (80.0-100.0); Mean Platelet Volume 10.2 fL (9.4-12.4); Platelet Count 174 K/uL (130-400); RDW Coefficient of Variation 15.6 % (11.5-14.5); RDW Standard Deviation 49.9 fL (36.4-46.3); Red Blood Count 3.61 M/uL (4.70-6.10); White Blood Count 8.45 K/ul (4.8-10.8)
[2023-11-29 05:41] LABS: BUN Creatinine Ratio 15.7 (10-20); Calcium 8.1 mg/dl (8.6-10.3); Creatinine Clr Calc Pharmacy 81.4 ml/min; Est GFR (Non-African American) 85.4 ml/min; Magnesium 2.3 mg/dl (1.7-2.4); Phosphorus 3.1 mg/dl (2.5-4.9); Potassium 3.5 mmol/L (3.5-5.1)
[2023-11-29 07:27] LABS: Estimated Average Glucose 157 mg/dl; Hemoglobin A1C 7.1 % (4.5-5.6)
[2023-11-29] MEDS: CHOLECALCIFEROL 25 MCG (1000 UNITS) TAB PO SCH (08:00)
[2023-11-29] MEDS: ENOXAPARIN INJ 40 MG/0.4 ML SYR SQ SCH (08:00)
[2023-11-29] MEDS: lisinopril 10 MG TAB PO SCH (08:00)
[2023-11-29] MEDS: MULTIVITAMIN TAB PO SCH (08:00)
[2023-11-29] MEDS: ATORVASTATIN 40 MG TAB PO SCH (08:00)
[2023-11-29] MEDS: SIMETHICONE 80 MG CHEW PO PRN (11:30)
[2023-11-29] MEDS: PANTOprazole 40 MG in SYRINGE 0 ML IV SCH (11:30)
[2023-11-29] MEDS: PANCREAZE (LIPASE 10,500U) CAP PO SCH (15:15)
--- NOTE | 2023-11-29 20:56 | Electrocardiogram Report ---
Test Reason : Blood Pressure : / mmHG Vent. Rate : 114 BPM Atrial Rate : 114 BPM P-R Int : 136 ms QRS Dur : 076 ms QT Int : 322 ms P-R-T Axes : 069 023 074 degrees QTc Int : 443 ms Sinus tachycardia Otherwise normal ECG When compared with ECG of 30-JUL-2022 20:14, No significant change was found Confirmed by Kade Soler ([id number]) on 11/29/2023 8:55:50 PM Referred By: REFERRED SELF Confirmed By:Kade Soler
--- NOTE | 2023-11-29 22:32 | Hospitalist Progress Note ---
Date of Service November 29, 2023 Assessment & Plan (1) Enteritis: Plan: 72 M with stage II pancreatic cancer (s/p Whipple on 10/05, chemotherapy), HTN, HLD, DM2, who presents with abdominal pain and diarrhea x 3 days with evidence of nonspecific enteritis on CT A/P. Now admitted for further evaluation, supportive management. LLQ Abdominal Pain/Ileal Enteritis -Circumferential ileal wall thickening seen on CT A/P "suspicious for nonspecific enteritis." -Clinically afebrile, otherwise hemodynamically stable. -S/p IV cefepime 2 g, supportive measures (famotidine, Bentyl, Zofran, Phenergan) in the ED. In the absence of red flag symptoms, and patient's clinical presentation will discontinue antibiotics, managed with bowel rest and supportive measures at this time. -There is possibility that the enteritis is in fact secondary to pancreatic insufficiency, given patient's history of pancreatic cancer. However, will manage as infectious/inflammatory for the time being. * Admit to MedSurg telemetry * N.p.o. for bowel rest (except for p.o. meds, sips and chips) * Resuscitative maintenance fluids Lactated Ringer@125 mL/h x 1 bag * Stool culture/stool bio fire PCR and C. difficile stool PCR ordered, negative * IV Protonix 40 mg daily * IV Zofran every 4 hours as needed * will add creon given history of exxplosive diarrhea. Hyponatremia -Na of 130 on admission. Previous range 136-140. -Suspect 2/2 poor p.o. intake, diarrhea. * Maintenance IVF as above * Trend daily BMP Hypomagnesemia/Hypophosphatemia -Mg 1.6, Phos 2.3 on initial ER workup. S/p IV Mg repletion x 1 g in the ER. -Likely 2/2 poor p.o. intake. * Additional IV Mg repletion x 2 g * Recheck Mg, Phos in a.m. replete as needed Type 2 Diabetes Mellitus -Reported by patient. Otherwise unconfirmed. Not on any antihyperglycemic pharmacotherapy at home. -Glucose-189 on initial ER workup. * N.p.o. as above. * SSI insulin per protocol (range = 100-140, CF = 40, CR = 20) * A.m. Hgb A1c pending * Atorvastatin 40 mg daily Hypertension -Chronic. On lisinopril 10 mg daily at home. * Continue home lisinopril Pancreatic cancer (stage II) -Managed at [facility]. -S/p Whipple procedure on October 05. Currently on chemotherapy * Continue to monitor * September trial Code: Full code Dispo: Med-Surg telemetry FEN/GI: NPO. LR @maintenance rate DVT Prophylaxis: Lovenox 40 mg q24h (2) Left lower quadrant abdominal pain: (3) Hyponatremia: (4) Hypomagnesemia: (5) Hypophosphatemia: (6) Pancreatic cancer: (7) HTN (hypertension): (8) Type 2 diabetes mellitus: (9) Hyperlipidemia: Admission and Anticipated Discharge Date Admission Date: November 28, 2023 Subjective 72 yo male reports wanting to tolerate a diet. Having explosive diarrhea. Review of Systems Review of Systems: All systems reviewed & are unremarkable except as noted in HPI & below Physical Exam Physical Exam: General: No acute distress HEENT: PERRLA. Normal conjunctiva, anicteric sclera. Respiratory: Normal respiratory effort, CTABL. Cardiovascular: RRR without murmurs, gallops, or rubs. No pedal edema. GI: Mild LLQ tenderness to palpation. Rest of exam normal. Neuro: Alert and oriented x3. Results & Data Results & Data Vital Signs (Past 12 Hours) Vital Signs Temp Pulse Pulse Resp BP BP BP 11/29/23 19:55 36.8 C 81 20 143/83 H 11/29/23 15:18 83 11/29/23 14:44 11/29/23 14:38 36.9 C 78 18 123/73 11/29/23 12:00 84 14 130/64 Pulse Ox O2 Del Method 11/29/23 19:55 97 Room Air 11/29/23 15:18 11/29/23 14:44 Room Air 11/29/23 14:38 96 Room Air 11/29/23 12:00 98 Room Air PG Care Time/CCT Total # of Minutes Spent Total Time Spent with Patient: Total time spent is greater than 50% in coordination of care (as documented) at patient's floor/unit and/or counseling patient: Coding Level of Care Code 78861 SUB INP/OBS CARE 2/35MIN Diagnoses Enteritis K52.9 Left lower quadrant abdominal pain R10.32 Hyponatremia E87.1 Hypomagnesemia E83.42 Hypophosphatemia E83.39 Pancreatic cancer C25.9 Pancreatic malignancy location: unspecified HTN (hypertension) I10 Type 2 diabetes mellitus E11.9 Hyperlipidemia E78.5 (6) Pancreatic cancer Pancreatic malignancy location: unspecified Qualified Code(s): C25.9 - Malignant neoplasm of pancreas, unspecified
--- NOTE | 2023-11-30 01:30 | Billing Data ---
Date of Service November 30, 2023 Coding Level of Care Code 15697 INT INP/OBS CARE
[2023-11-30 08:32] LABS: Hematocrit (blood only) 31.5 % (42.0-52.0); Hemoglobin 10.3 g/dl (14.0-18.0); Mean Corpuscular Hemoglobin 28.9 pg (25.0-34.0); Mean Corpuscular Hgb Conc 32.7 g/dL (32.0-36.0); Mean Corpuscular Volume 88.5 fL (80.0-100.0); Mean Platelet Volume 9.6 fL (9.4-12.4); Platelet Count 184 K/uL (130-400); RDW Coefficient of Variation 15.4 % (11.5-14.5); RDW Standard Deviation 49.8 fL (36.4-46.3); Red Blood Count 3.56 M/uL (4.70-6.10); White Blood Count 12.11 K/ul (4.8-10.8)
[2023-11-30 08:49] LABS: BUN Creatinine Ratio 14.9 (10-20); Calcium 7.8 mg/dl (8.6-10.3); Creatinine Clr Calc Pharmacy 83.3 ml/min; Est GFR (African American) 99.9 ml/min; Est GFR (Non-African American) 86.2 ml/min; Potassium 3.2 mmol/L (3.5-5.1)
--- NOTE | 2023-11-30 16:12 | Oncology Consultation ---
Date of Consultation November 30, 2023 Assessment & Plan (1) Pancreatic cancer: given that the patient is admitted to the hospital with diarrhea, enteritis we will hold his cancer treatment as of now. Will delay neck cycle of chemotherapy by 1 week. Actually I will lower the doses of his chemotherapy going forward given that he was admitted to the hospital after first cycle of modified FOLFIRINOX. Have delayed chemotherapy to next week. Stool studies were negative for C. difficile (2) Enteritis: . The patient has enteritis which could be related to chemotherapy . at this time will recommend supportive care with IV fluids and antidiarrheal medication after stool studies have been negative for C. difficile. Creon may be also helpful given that he may have a component of pancreatic insufficiency. Once the enteritis resolves and the patient is discharged we will resume chemotherapy with dose reduction On an outpatient basis. Plan thank you for this interesting oncological consult. A total of 60 minutes spent in counseling, coordination of care, review of prior records. History of Present Illness Reason for Consultation: pancreatic cancer on adjuvant chemotherapy Attending Physician: Travis Rizzo History of Present Illness Diagnosis: Pancreatic cancer Stage: pT1b pN1 Date of diagnosis: 09/04/2023 Distal bile duct stricture: Bile duct biopsy positive for poorly differentiated adenocarcinoma Treatment: pancreaticoduodenectomy, partial pancreatectomy (robot assisted Whipple's), 10/06/2023 Histological type: Ductal adenocarcinoma Tumor site: Pancreatic head Histological grade: G2, moderately differentiated Tumor size: 0.8 x 0.7 x 0.6 cm Sites involved by direct tumor extension: Pancreatic surface involvement, peripancreatic soft tissue, retroperitoneal soft tissue, extrapancreatic common bile duct No known presurgical therapy Lymphovascular invasion: Present Perineural invasion: Present Margin status for invasive cancer: All margins negative for invasive carcinoma Margin status for dysplasia and intraepithelial neoplasia: All margins negative for dysplasia and intraepithelial neoplasia Number of lymph nodes retrieved: 26, 2 out of 26 lymph nodes positive for tumor PET CT scan, 09/15/2023: No evidence of malignancy in the neck No evidence of malignancy in chest, large hiatal hernia No abnormal FDG activity in pancreas which appears unremarkable Multiple hypodensity liver lesion seen best on CT abdomen demonstrate varying degree of hypermetabolic activity on today's study Marked sigmoid colon diverticulosis Enlarged prostate with impression bladder base Diffuse increased metabolic uptake in the bones raising the question of bone marrow stimulation patent Triphasic CT scan of the abdomen and pelvis, 09/03/2023, pancreatic protocol: Multiphasic CT to evaluate pancreatic demonstrates demonstrates no definitive pancreatic lesion Internal biliary stent is unchanged in position Large hiatal hernia Marked diverticulosis greatest in sigmoid colon 17 mm nonspecific left adrenal nodule Enlarged prostate CT chest abdomen pelvis with IV contrast, 08/31/2023: Interval placement of biliary stent with pneumobilia likely stent related No pancreatic mass or obstructing lesion identified No source of infection or evidence of malignancy in the chest abdomen pelvis Other chronic findingswill be requested for continued symptomatic CA 19-9, 10/27/2023: 48 CT, chest abdomen pelvis, 11/09/2023: IMPRESSION: 1. There is no evidence of intrathoracic metastatic disease. 2. There are at least 4 groundglass lesions in the right lower lobe. These are pathologically determined, and the smallest/most inferior was also seen on the 07/30/[address] scan. Attention at follow-up is recommended, as adenomatous lesions are not excluded. 3. Mild emphysema. 4. There is no airspace consolidation or pleural effusion. 5. Moderate to large hiatal hernia. 6. Additional findings as above. 1. Postoperative changes consistent with an interval Whipple procedure. Nonmasslike fat stranding at the juany hepatis as well as areas of fat necrosis inferior to the pancreas. This favors postoperative change/scarring. However, attention at follow-up recommended to exclude the less likely possibility of metastatic disease. 2. The residual pancreas enhances normally. 3. A 13 mm omental soft tissue nodule inferior to the distal stomach. This could also represent postoperative change. However, 3-6 month abdomen and pelvis CT follow-up recommended to exclude a metastatic focus. 4. Moderate hiatus hernia, unchanged. adjuvant treatment, modified FOLFIRINOX, cycle 1 day 1: 11/18/2023 CT abdomen pelvis, 11/28/2023: IMPRESSION: 1. Postoperative changes of prior Whipple procedure. Postoperative changes within the abdomen are redemonstrated. Inflammatory stranding surrounds the gastric enteric anastomosis which may be postsurgical, infectious or inflammatory. 2. Unchanged 13 mm omental soft tissue nodule adjacent to the distal stomach. 3. Several loops of ileum demonstrates circumferential wall thickening suspicious for a nonspecific enteritis. 4. Moderate-sized hiatal hernia. 5. Colonic diverticulosis. the patient is a very pleasant 72-year-old man, with a past history of pancreatic cancer who is currently under my care and receiving adjuvant chemotherapy. he received first cycle of adjuvant modified FOLFIRINOX therapy on 11/18/2023, subsequently developed left lower quadrant abdominal pain and diarrhea. He was having about 4 bowel movements daily. He had a CT scan done which revealed nonspecific enteritis. He received IV fluids and supportive care. He was admitted to the hospital with diarrhea and abdominal pain. Medical oncology has been consulted to assist in management of this patient received adjuvant FOLFIRINOX therapy and then developed flatulence and diarrhea Allergies Allergy/AdvReac Type Severity Reaction Status Date / Time No Known Allergies Allergy Unknown ` Verified 11/28/23 16:50 Home Medications Medication Instructions Recorded Confirmed Type cholecalciferol (vitamin D3) 50 50 mcg PO DAILY 07/30/22 11/28/23 History mcg (2,000 unit) capsule (Vitamin D3) multivitamin 1 tab PO DAILY 07/30/22 11/28/23 History lisinopril 10 mg tablet 10 mg PO QAM 11/06/23 11/28/23 History omeprazole 40 mg capsule,delayed 40 mg PO QAM 11/06/23 11/28/23 History release prochlorperazine maleate 10 mg 10 mg PO Q6 PRN Nausea 11/28/23 11/28/23 History tablet Patient History Medical History Sensorineural hearing loss Hyperlipidemia Diaphragmatic hernia Type 2 diabetes mellitus HTN (hypertension) Pancreatic cancer (09/2023) [place] records also list cancer of liver, gallbladder and bile duct Surgical History Port-A-Cath in place Insertion Access Port with Fluoroscopy(Left) - Casper Tavera DO History of esophagogastroduodenoscopy (EGD) Hx of tonsillectomy Hx of hernia repair S/P appendectomy History of Whipple procedure (10/2023) [facility] Social History Smoking Status: Never smoker Second Hand Exposure: No; Do You Dip or Chew Tobacco: No; Hx Alcohol Use: No Hx Substance Use: No Preferred Language: Telugu Communication Ability: Effective Visual Impairment: No Limitations Pressure Test Operator Required: No Beliefs That Will Affect Care: None marital status: Current Living Situation: Spouse Other Information That Helps Us Care for You: No Feels Safe at Home: Yes Safety Concerns: Feels Safe At This Time Assistive Devices: None Results & Data Vital Signs (Past 12 Hours) Vital Signs Temp Pulse Pulse Pulse Resp BP Pulse Ox 11/30/23 11:45 36.6 C 96 H 18 132/78 96 11/30/23 07:45 36.4 C L 80 18 128/77 98 11/30/23 07:32 73 O2 Del Method 11/30/23 11:45 Room Air 11/30/23 07:45 Room Air 11/30/23 07:32 (1) Pancreatic cancer Pancreatic malignancy location: unspecified Qualified Code(s): C25.9 - Malignant neoplasm of pancreas, unspecified
--- NOTE | 2023-11-30 22:37 | Hospitalist Progress Note ---
Date of Service November 30, 2023 Assessment & Plan (1) Enteritis: Plan: 72 M with stage II pancreatic cancer (s/p Whipple on 10/05, chemotherapy), HTN, HLD, DM2, who presents with abdominal pain and diarrhea x 3 days with evidence of nonspecific enteritis on CT A/P. Now admitted for further evaluation, supportive management. LLQ Abdominal Pain/Ileal Enteritis -Circumferential ileal wall thickening seen on CT A/P "suspicious for nonspecific enteritis." -Clinically afebrile, otherwise hemodynamically stable. -S/p IV cefepime 2 g, supportive measures (famotidine, Bentyl, Zofran, Phenergan) in the ED. In the absence of red flag symptoms, and patient's clinical presentation will discontinue antibiotics, managed with bowel rest and supportive measures at this time. -There is possibility that the enteritis is in fact secondary to pancreatic insufficiency, given patient's history of pancreatic cancer. * Admit to [facility] telemetry * showing improvement with creon * tolerating diet/ placed on creon. (has supply at home) * darrhea has improved/ patient with gas * Stool culture/stool bio fire PCR and C. difficile stool PCR ordered, negative * IV Protonix 40 mg daily * IV Zofran every 4 hours as needed Hyponatremia -Na of 130 on admission. Previous range 136-140. -Suspect 2/2 poor p.o. intake, diarrhea. * Maintenance IVF as above * improved Hypomagnesemia/Hypophosphatemia -Mg 1.6, Phos 2.3 on initial ER workup. S/p IV Mg repletion x 1 g in the ER. -Likely 2/2 poor p.o. intake. * Additional IV Mg repletion x 2 g * improved. Type 2 Diabetes Mellitus -Reported by patient. Otherwise unconfirmed. Not on any antihyperglycemic pharmacotherapy at home. -Glucose-189 on initial ER workup. * N.p.o. as above. * SSI insulin per protocol (range = 100-140, CF = 40, CR = 20) * A.m. Hgb A1c pending * Atorvastatin 40 mg daily Hypertension -Chronic. On lisinopril 10 mg daily at home. * Continue home lisinopril Pancreatic cancer (stage II) -Managed at [facility]. -S/p Whipple procedure on October 05. Currently on chemotherapy * Continue to monitor * September trial Code: Full code Dispo: Med-Surg telemetry DVT Prophylaxis: Lovenox 40 mg q24h (2) Left lower quadrant abdominal pain: (3) Hyponatremia: (4) Hypomagnesemia: (5) Hypophosphatemia: (6) Pancreatic cancer: (7) HTN (hypertension): (8) Type 2 diabetes mellitus: (9) Hyperlipidemia: Admission and Anticipated Discharge Date Admission Date: November 28, 2023 Subjective Patient reports feeling weak. Diarrhea improving. Review of Systems Review of Systems: All systems reviewed & are unremarkable except as noted in HPI & below Physical Exam Physical Exam: General: No acute distress HEENT: PERRLA. Normal conjunctiva, anicteric sclera. Respiratory: Normal respiratory effort, CTABL. Cardiovascular: RRR without murmurs, gallops, or rubs. No pedal edema. GI: Mild LLQ tenderness to palpation. Rest of exam normal. Neuro: Alert and oriented x3. Results & Data Results & Data Vital Signs (Past 12 Hours) Vital Signs Temp Pulse Pulse Resp BP Pulse Ox O2 Del Method 11/30/23 19:41 36.4 C L 85 16 163/81 H 98 Room Air 11/30/23 15:00 79 11/30/23 11:45 36.6 C 96 H 18 132/78 96 Room Air PG Care Time/CCT Total # of Minutes Spent Total Time Spent with Patient: Total time spent is greater than 50% in coordination of care (as documented) at patient's floor/unit and/or counseling patient: Coding Level of Care Code 71066 SUB INP/OBS CARE 2/35MIN Diagnoses Enteritis K52.9 Left lower quadrant abdominal pain R10.32 Hyponatremia E87.1 Hypomagnesemia E83.42 Hypophosphatemia E83.39 Pancreatic cancer C25.9 Pancreatic malignancy location: unspecified HTN (hypertension) I10 Type 2 diabetes mellitus E11.9 Hyperlipidemia E78.5 (6) Pancreatic cancer Pancreatic malignancy location: unspecified Qualified Code(s): C25.9 - Malignant neoplasm of pancreas, unspecified
[2023-12-01 06:28] LABS: Hematocrit (blood only) 33.9 % (42.0-52.0); Hemoglobin 11.1 g/dl (14.0-18.0); Mean Corpuscular Hemoglobin 29.1 pg (25.0-34.0); Mean Corpuscular Hgb Conc 32.7 g/dL (32.0-36.0); Mean Platelet Volume 9.7 fL (9.4-12.4); Platelet Count 213 K/uL (130-400); RDW Coefficient of Variation 15.3 % (11.5-14.5); RDW Standard Deviation 49.6 fL (36.4-46.3); Red Blood Count 3.81 M/uL (4.70-6.10); White Blood Count 13.74 K/ul (4.8-10.8)
[2023-12-01 06:43] LABS: BUN Creatinine Ratio 11.6 (10-20); C Reactive Protein 3.96 mg/dl (0-0.5); Calcium 7.8 mg/dl (8.6-10.3); Creatinine Clr Calc Pharmacy 85.2 ml/min; Est GFR (African American) 100.4 ml/min; Est GFR (Non-African American) 86.6 ml/min; Potassium 3.1 mmol/L (3.5-5.1)
--- NOTE | 2023-12-01 08:40 | Hospitalist Progress Note ---
Date of Service December 01, 2023 Assessment & Plan (1) Enteritis: Plan: 72 M with stage II pancreatic cancer (s/p Whipple on 10/06/23, chemotherapy), HTN, HLD, DM2, who presents with abdominal pain and diarrhea x 3 days with evidence of nonspecific enteritis on CT A/P. Now admitted for further evaluation, supportive management. LLQ Abdominal Pain/Ileal Enteritis -Circumferential ileal wall thickening seen on CT A/P "suspicious for nonspecifi c enteritis." -Clinically afebrile, otherwise hemodynamically stable. -S/p IV cefepime 2 g, supportive measures (famotidine, Bentyl, Zofran, Phenergan) in the ED. -There is possibility that the enteritis is in fact secondary to pancreatic insufficiency, given patient's history of pancreatic cancer. * showing improvement with creon(has supply at home) * darrhea has improved/ patient with gas * Stool culture/stool bio fire PCR and C. difficile stool PCR ordered, negative * IV Protonix 40 mg daily * IV Zofran every 4 hours as needed Pancreatic cancer (stage II) -Also treated at [facility]. -S/p Whipple procedure on October 05. Currently on chemotherapy thry CCP folfirinox treatment in the past (2) Hyponatremia: Plan: Hyponatremia -Na of 130 on admission. Previous range 136-140. -Suspect 2/2 poor p.o. intake, diarrhea. * Maintenance IVF as above * improved (3) Hypomagnesemia: Plan: Hypomagnesemia/Hypophosphatemia -Mg 1.6, Phos 2.3 on initial ER workup. S/p IV Mg repletion x 1 g in the ER. -Likely 2/2 poor p.o. intake. * Additional IV Mg repletion x 2 g * improved. (4) HTN (hypertension): Plan: Hypertension -Chronic. On lisinopril 10 mg daily at home. * Continue home lisinopril (5) Type 2 diabetes mellitus: Plan: Type 2 Diabetes Mellitus -Reported by patient. Otherwise unconfirmed. Not on any antihyperglycemic pharmacotherapy at home. -Glucose-189 on initial ER workup. * N.p.o. as above. * SSI insulin per protocol (range = 100-140, CF = 40, CR = 20) * A.m. Hgb A1c pending * Atorvastatin 40 mg daily Plan Code: Full code Dispo: Med-Surg telemetry DVT Prophylaxis: Lovenox 40 mg q24h Admission and Anticipated Discharge Date Admission Date: November 28, 2023 Results & Data Results & Data Vital Signs (Past 12 Hours) Vital Signs Temp Pulse Pulse Resp BP Pulse Ox O2 Del Method 12/01/23 07:41 97.9 F 95 H 20 169/94 H 96 Room Air 12/01/23 05:04 82 12/01/23 02:40 98.1 F 90 18 149/79 H 99 Room Air 11/30/23 22:26 98.1 F 93 H 18 142/81 H 99 Room Air 11/30/23 21:52 80 PG Care Time/CCT Total # of Minutes Spent Total Time Spent with Patient: Total time spent is greater than 50% in coordination of care (as documented) at patient's floor/unit and/or counseling patient: Coding Diagnoses Enteritis K52.9 Hyponatremia E87.1 Hypomagnesemia E83.42 HTN (hypertension) I10 Type 2 diabetes mellitus E11.9
--- NOTE | 2023-12-01 17:40 | Discharge Summary ---
Discharge Summary Date of Service December 01, 2023 Principal Dx & Hospital Course #1 = Principal Diagnosis (1) Enteritis: 72 M with stage II pancreatic cancer (s/p Whipple on 10/06/23, chemotherapy), HTN, HLD, DM2, who presents with abdominal pain and diarrhea x 3 days with evidence of nonspecific enteritis on CT A/P. Now admitted for further evaluation, supportive management. LLQ Abdominal Pain/Ileal Enteritis -Circumferential ileal wall thickening seen on CT A/P "suspicious for nonspecific enteritis." -Clinically afebrile, otherwise hemodynamically stable. -S/p IV cefepime 2 g, patient is not discharged on any antibiotics he did improve greatly with supportive measures (famotidine, Bentyl, Zofran, Phenergan) in the ED. -There is possibility that the enteritis is in fact secondary to pancreatic insufficiency, given patient's history of pancreatic cancer. * showing improvement with creon(has supply at home) will restart Creon 1 pill 3 times a day escalating to 2 pills 3 times a day with advice from his surgeon * Stool culture/stool bio fire PCR and C. difficile stool PCR ordered, negative Pancreatic cancer (stage II) -Also treated at [facility]. -S/p Whipple procedure on October 05. Currently on chemotherapy therapy CCP folfirinox treatment in the past (2) Hyponatremia: Hyponatremiaimproved to 135 -Na of 130 on admission. Previous range 136-140. -Suspect 2/2 poor p.o. intake, diarrhea. * Maintenance IVF as above * improved (3) Hypomagnesemia: Hypomagnesemia/Hypophosphatemia Improved with repletion (4) HTN (hypertension): Hypertension -Chronic. On lisinopril 10 mg daily at home. * Continue home lisinopril (5) Type 2 diabetes mellitus: Type 2 Diabetes Mellitus -Reported by patient. Otherwise unconfirmed. Not on any antihyperglycemic pharmacotherapy at home. -Glucose-189 on initial ER workup. * N.p.o. as above. * SSI insulin per protocol (range = 100-140, CF = 40, CR = 20) * A.m. Hgb A1c pending * Atorvastatin 40 mg daily Plan Code: Full code Discharged home with outpatient with [facility] Admission HPI Per Admitting Provider Angus is a 72-year-old man with a recent medical history of pancreatic cancer (stage II, s/p Whipple procedure on 10/05 [facility]), HLD, HTN, who presented to the emergency room with a complaint of abdominal pain and diarrhea since . Specifically, he reports ~4 BMs daily since symptom onset (1 BM daily at baseline). ROS + nausea, gas, poor appetite, generalized weakness. He denies emesis, hematochezia, melena, recent antibiotic use, recent hospital visit, or pain with defecation. In the ER, vitals were stable, within normal limits. Labs were notable for Na- 130, Mg-1.6, Phos-2.3. WBC was normal-8.65, as were procalcitonin (0.23), lipase (14), high-sensitivity troponin (11.1), alk phos (100), and lactate (1.8). CT A/P report noted circumferential ileal wall thickening "suspicious for a nonspecific enteritis." He received a 2 L normal saline bolus, IV Tylenol 1 g, IV cefepime 2 g, IV dicyclomine, IV famotidine 20 mg, IV Phenergan 12.5 mg, IM Bentyl 20 mg, IV Zofran 4 mg, as well as IV Mg repletion x 1 g hospitalist service was then consulted for admission. On admission, he continues to report lingering LLQ abdominal pain. He also reports having a watery bowel movement since presenting to the ER. Otherwise, he has no acute complaints. Discharge Exam patient patient seen in the presence of his family with Bebe at home he was functional walking about the room going to the bathroom was able to take food and drink. Card exam is regular lungs are clear abdomen is benign patient be able discharged home on 11/30 Updated Medication List Medication Instructions Recorded Confirmed Type cholecalciferol (vitamin D3) 50 50 mcg PO DAILY 07/30/22 11/28/23 History mcg (2,000 unit) capsule (Vitamin D3) multivitamin 1 tab PO DAILY 07/30/22 11/28/23 History lisinopril 10 mg tablet 10 mg PO QAM 11/06/23 11/28/23 History omeprazole 40 mg capsule,delayed 40 mg PO QAM 11/06/23 11/28/23 History release prochlorperazine maleate 10 mg 10 mg PO Q6 PRN Nausea 11/28/23 11/28/23 History tablet Hospital Stay Data Consultations 11/28/23 21:06 ED Decision to Admit Stat 11/30/23 11:15 Consult Oncology Routine Diagnostic Imagining Performed 11/28/23 18:58 CT abd pelvis IV con only Stat Pending Results Patient Have Any Pending Studies at Discharge: No Discharge Instructions Given to Patient (Per Discharging Provider) please restart your pancreatic enzymes with meals, preferably at the start of eating use one pill three times a day for 2 days then 1 at breakfast 2 at lunch 1 with evening meal for 2 days then 1 breakfast 2 lunch 2 leslie meal x 2 days then 2 with each meal if you have heart burn or nausea contact the prescribing physician, if you have increased diarrhea, try to keep up fluid intake with a liquid containig electrolytes such as gatoraide, power aide or pedialyte, if you are unable to keep up return to the ER Total Time Total Time Spent Total Time Spent (In Minutes): It required greater than 30 minutes to prepare this patient for discharge. Coding Level of Care Code 16717 INP/OBS DISCH >30 MIN Diagnoses Enteritis K52.9 Hyponatremia E87.1 Hypomagnesemia E83.42 HTN (hypertension) I10 Type 2 diabetes mellitus E11.9
== END 2023-12-01 11:50 | disposition home or self-care (01) | DRG 392 ==
LOC: ED 16:25 → EDINP 21:08 → SUATTDRO 21:08 → 2W 23:30